=== PATIENT | female | born 1980 | race Caucasian/White ===

== ENCOUNTER 2017-10-26 23:03 | Emergency (ER) | payer BC ==
[2017-10-26] MEDS ORDERED: Ketorolac 60 MG/2 ML SDV IM ONE (23:57)
--- NOTE | 2017-10-27 00:44 | EDM.PDOC ---
ED HPI GENERAL MEDICAL PROBLEM - General Chief Complaint: Lower Extremity Injury/Pain Stated Complaint: FELL ON HER TAILBONE AT [employer] Time Seen by Provider: 10/26/17 23:46 Source of Information: Reports: Patient, Family () History Limitations: Reports: Intoxication - History of Present Illness INITIAL COMMENTS - FREE TEXT/NARRATIVE: The patient states that she slipped and fell onto her buttocks around 22:00 tonight, at [employer], a bar. The patient acknowledges that she is intoxicated. She states that she landed only on her buttocks, and is otherwise uninjured. She complains of pain to her lower sacral area that does not radiate. She states that she previously broke her tailbone during childbirth. The patient does not have a PCP. Sacral Pain Score (Numeric/FACES): 10 - Related Data Allergies Allergy/AdvReac Type Severity Reaction Status Date / Time No Known Allergies Allergy Verified 10/26/17 23:17 Home Meds: Home Meds Cholecalciferol (Vitamin D3) [Vitamin D] 1 tab PO DAILY 10/26/17 [History] Vitamin B Complex 1 tab PO DAILY 10/26/17 [History] Past Medical History - Past Surgical History Female Surgical History: Reports: Hysterectomy Social & Family History - Tobacco Use Smoking Status *Q: Current Every Day Smoker Years of Tobacco use: 20 Packs/Tins Daily: 0.5 Packs/Tins Daily Comment: Down from 1 ppd - Alcohol Use Alcohol Use History: Yes Alcohol Use Frequency: Socially - Recreational Drug Use Recreational Drug Use: No - Living Situation & Occupation Living situation: Reports: , with Spouse, with Family (3 kids) Occupation: Unemployed Review of Systems - Review of Systems Review Of Systems: ROS reveals no pertinent complaints other than HPI. ED EXAM, GENERAL - Physical Exam Exam: See Below Exam Limited By: No Limitations General Appearance: Alert, WD/WN, No Apparent Distress Back Exam: Other (No visible abnormality to the buttocks, sacral, or coccygeal area, and minimal tenderness to palpation of the inferior aspect of the sacrum, where the patient is complaining of pain.) Course - Vital Signs Last Recorded V/S: Last Vital Signs Temp 37.1 C 10/26/17 23:15 Pulse 80 10/26/17 23:15 Resp 17 10/26/17 23:15 BP 121/80 10/26/17 23:15 Pulse Ox 100 10/26/17 23:15 - Orders/Labs/Meds Orders: Active Orders 24 hr Category Date Time Status Sacrum Coccyx Min 2V [CR] Stat Exams 10/26/17 23:54 Taken Meds: Medications Discontinued Medications Generic Name Dose Route Start Last Admin Trade Name Susi PRN Reason Stop Dose Admin Ketorolac Tromethamine 60 mg 10/26/17 23:57 10/27/17 00:09 Toradol IM 10/26/17 23:58 60 mg ONETIME ONE Administration - Re-Assessments/Exams Free Text/Narrative Re-Assessment/Exam: 10/27/17 00:43 3-view radiographs of the sacrum and coccyx appear to be unremarkable. No fractures or dislocations identified. Formal read per the Radiologist pending. 10/27/17 00:46 X-ray results discussed with the patient and her . As above, no fracture identified. The patient has likely contused her buttock area. I'm recommending [id number] ibuprofen. Departure - Departure Time of Disposition: 00:46 Disposition: Home, Self-Care 01 Condition: Good Clinical Impression: Sacral contusion - Discharge Information Instructions: Contusion Referrals: PCP,None [Primary Care Provider] - Forms: ED Department Discharge Additional Instructions: You were seen in the emergency room after falling onto your buttocks at a bar. Workup in the ER included x-rays of your sacrum and coccyx, which were normal. No broken bones seen. You have likely bruised your tailbone area. We recommend you take [id number] ibuprofen as needed for discomfort. Get plenty of rest tonight, then resume your usual activities, even if you are sore. If any other problems, please do not hesitate to return to the ER. - My Orders Last 24 Hours: My Active Orders 10/26/17 23:54 Sacrum Coccyx Min 2V [CR] Stat - Assessment/Plan Last 24 Hours: My Active Orders 10/26/17 23:54 Sacrum Coccyx Min 2V [CR] Stat
--- NOTE | 2017-10-27 07:35 | CR ---
Sacrum and coccyx: Three views of the sacrum and coccyx were obtained. Comparison: No previous study. Sacroiliac joints are within normal limits. Sacral foramina appear to be patent. No fracture or other abnormality is identified. Impression: 1. No abnormality is appreciated on three-view sacrum and coccyx study. Diagnostic code #1
== END 2017-10-27 00:52 | disposition home or self-care (01) ==
LOC: JD.ED 23:03
DX: S30.0XXA Contusion of lower back and pelvis, initial encounter (principal); F17.210 Nicotine dependence, cigarettes, uncomplicated; W01.0XXA Fall on same level from slipping, tripping and stumbling without subsequent striking against object, initial encounter
CPT/HCPCS: 72220; 96372; 99283; J1885